=== PATIENT | female | born 1985 | race Two or more races ===

== ENCOUNTER → 2019-06-26 | Outpatient (CLI) | payer OTHER ==
--- NOTE | 2019-06-26 14:15 | REP ---
Chest x-ray: Two views. History: Persistent cough for 3 weeks. Findings: There is an irregular infiltrate in the right lower lobe consistent with pneumonia. Remaining lung castro are clear. Heart is not enlarged. No hilar or mediastinal mass or adenopathy is observed. No pleural effusion is evident. No bony abnormality. Impression: Somewhat nodular infiltrate in the right lower lobe consistent with pneumonia. Follow-up chest x-ray is recommended in 3-4 weeks post-treatment. Electronically Signed by Ba Massey MD 06/26/2019 02:06 P
== END ==
LOC: M LRY 13:53
PROVIDERS: ATTEND Nurse Practitioner Family
DX: R91.8 Other nonspecific abnormal finding of lung field (principal)
CPT/HCPCS: 71046; G0463